=== PATIENT | female | born 2000 | race Caucasian/White ===

== ENCOUNTER 2021-11-13 13:34 | Outpatient (CLI) | payer BC | END 2021-11-13 13:35 | disposition home or self-care (01) | LOC: CTENTCT 13:34 | PROVIDERS: ATTEND Student in an Organized Health Care Education/Training Program | DX: J01.91 Acute recurrent sinusitis, unspecified (principal) | CPT/HCPCS: 70486 ==

== ENCOUNTER 2021-12-05 16:52 | Outpatient (CLI) | payer BC ==
[2021-12-05 17:41] LABS: BHCG - Serum Negative (NEGATIVE); Pregs Control Background? CLEAR/WHITE (CLR/WHITE); Pregs Control Bar Appear? YES (CONTROL BAR)
[2021-12-06 02:11] LABS: SARS-CoV-2 PCR by NAA Not Detected (NotDetected)
== END 2021-12-05 16:53 | disposition home or self-care (01) ==
LOC: LABBT 16:52
PROVIDERS: ATTEND Student in an Organized Health Care Education/Training Program
DX: Z01.812 Encounter for preprocedural laboratory examination (principal); J01.91 Acute recurrent sinusitis, unspecified; J34.2 Deviated nasal septum; J30.9 Allergic rhinitis, unspecified; J34.3 Hypertrophy of nasal turbinates; J34.89 Other specified disorders of nose and nasal sinuses; R43.0 Anosmia; J00 Acute nasopharyngitis [common cold]; R04.0 Epistaxis; Z20.822 Contact with and (suspected) exposure to COVID-19
CPT/HCPCS: 84703; 85014; U0003; U0005

== ENCOUNTER 2021-12-09 09:31 | Day surgery (SDC) | payer BC ==
[2021-12-04 11:38] VITALS: BMI 25.7
[2021-12-09] MEDS ORDERED: fentaNYL Citrate/PF 100 MCG/2 ML SYRINGE ONE (10:13)
[2021-12-09] MEDS ORDERED: Famotidine/PF 20 mg/2ml Vial ONE (10:14)
[2021-12-09] MEDS ORDERED: Propofol 500 MG/50 ML VIAL ONE ×4 (10:14→14:15)
[2021-12-09] MEDS ORDERED: Lidocaine 1% w/Epinephrine 1:100K 20 ML VIAL ONE ×2 (10:15→13:55)
[2021-12-09] MEDS ORDERED: Bacitracin Zinc Ointment 30 gm TUBE ONE (10:15)
[2021-12-09] MEDS ORDERED: AFRIN NASAL MIST 15 ML BOT ONE ×3 (10:15→13:46)
[2021-12-09] MEDS ORDERED: EPINEPHrine 1 MG/ML AMP ONE (10:15)
[2021-12-09] MEDS ORDERED: SUGAMMADEX SODIUM 200 MG/2 ML VIAL ONE (10:23)
[2021-12-09] MEDS ORDERED: Midazolam HCl 2 mg/2 ml Vial ONE (10:49)
[2021-12-09] MEDS ORDERED: Scopolamine 1.5 mg/72 hour Patch ONE (10:49)
[2021-12-09] MEDS ORDERED: PROPOFOL 200 MG/20 ML VIAL ONE (11:22)
[2021-12-09] MEDS ORDERED: Glycopyrrolate 0.2 MG/ML 5 ML SYRINGE ONE (11:22)
[2021-12-09] MEDS ORDERED: Ondansetron PF 4 MG/2 ML Vial ONE (11:22)
[2021-12-09] MEDS ORDERED: Lidocaine 1% PF 5 ML VIAL ONE (11:22)
[2021-12-09] MEDS ORDERED: Dexamethasone 20 MG/5 ML VIAL ONE (11:22)
[2021-12-09] MEDS ORDERED: Rocuronium Bromide 10 MG/ML (10ML VIAL) ONE (11:22)
[2021-12-09] MEDS ORDERED: Bupivacaine 0.25% 10 ML VIAL ONE (13:55)
[2021-12-09] MEDS ORDERED: Protamine Sulfate 50 MG/5 ML VIAL ONE (13:55)
[2021-12-09] MEDS ORDERED: Heparin 5,000 UNITS/ML VIAL ONE (13:55)
[2021-12-09] MEDS ORDERED: Triamcinolone 40 MG/ML VIAL ONE (13:57)
[2021-12-09] MEDS ORDERED: PROPOFOL 20 ML ONE (14:48)
[2021-12-09] MEDS ORDERED: Fentanyl 100 MCG/2 ML VIAL ONE ×2 (14:53→16:50)
[2021-12-09] MEDS ORDERED: PROPOFOL 40 ML ONE (16:04)
[2021-12-09] MEDS ORDERED: Hydrocodone-Acetamin 15 ML UDCUP ONE (17:48)
== END 2021-12-09 18:28 | disposition home or self-care (01) ==
LOC: SDC 09:31
PROVIDERS: ATTEND Student in an Organized Health Care Education/Training Program
PROC: 099T8ZZ Drainage of Left Frontal Sinus, Via Natural or Artificial Opening Endoscopic (ICD-10-PCS; principal; 2021-12-09)
PROC: 099R8ZZ Drainage of Left Maxillary Sinus, Via Natural or Artificial Opening Endoscopic (ICD-10-PCS; principal; 2021-12-09)
PROC: 09TV8ZZ Resection of Left Ethmoid Sinus, Via Natural or Artificial Opening Endoscopic (ICD-10-PCS; principal; 2021-12-09)
PROC: 09TL0ZZ Resection of Nasal Turbinate, Open Approach (ICD-10-PCS; principal; 2021-12-09)
PROC: 09SM0ZZ Reposition Nasal Septum, Open Approach (ICD-10-PCS; principal; 2021-12-09)
PROC: 09TU8ZZ Resection of Right Ethmoid Sinus, Via Natural or Artificial Opening Endoscopic (ICD-10-PCS; principal; 2021-12-09)
PROC: 099Q8ZZ Drainage of Right Maxillary Sinus, Via Natural or Artificial Opening Endoscopic (ICD-10-PCS; principal; 2021-12-09)
PROC: 8E09XBZ Computer Assisted Procedure of Head and Neck Region (ICD-10-PCS; principal; 2021-12-09)
PROC: 099S8ZZ Drainage of Right Frontal Sinus, Via Natural or Artificial Opening Endoscopic (ICD-10-PCS; principal; 2021-12-09)
DX: J32.9 Chronic sinusitis, unspecified (principal); J33.9 Nasal polyp, unspecified; J34.2 Deviated nasal septum; J34.3 Hypertrophy of nasal turbinates; E03.9 Hypothyroidism, unspecified; J30.9 Allergic rhinitis, unspecified; J34.89 Other specified disorders of nose and nasal sinuses; Z86.16 Personal history of COVID-19; Z79.890 Hormone replacement therapy; Z88.2 Allergy status to sulfonamides
CPT/HCPCS: J0171; J1100; J1644; J2250; J2405; J2704; J2720; J3010; J3301; S0020; S0028